=== PATIENT | female | born 2005 | race African-American/Black ===

== ENCOUNTER 2023-01-09 10:23 | Emergency (ER) | payer OTHER ==
[~2023-01-09] VITALS: Ht 157.5 cm; Wt 50.0 kg
[2023-01-09 10:27] VITALS: O2SAT 98
[2023-01-09] MEDS ORDERED: IBUP-2029 MT (10:50)
[2023-01-09] MEDS ORDERED: AMOX-494 MT (10:50)
[2023-01-09 11:23] VITALS: BP 124/77; PULSE 97; RESP 16; TEMP 100
== END 2023-01-09 11:54 | disposition home or self-care (01) ==
LOC: ER 11:49
DX: J03.90 Acute tonsillitis, unspecified (principal)
CPT/HCPCS: 87430; 99283

== ENCOUNTER 2023-04-03 11:00 | Emergency (ER) | payer OTHER ==
[~2023-04-03] VITALS: Ht 157.5 cm; Wt 50.0 kg
[~2023-04-03 11:00] MED LIST: AMOX-494 MT; IBUP-2029 MT
[2023-04-03 11:04] VITALS: TEMP 98.4; O2SAT 98
[2023-04-03] MEDS ORDERED: DIPHENHYDRAMINE 50MG CAPSULE PO ONE (11:15)
[2023-04-03] MEDS ORDERED: PREDNISONE 20MG TABLET PO ONE (11:15)
[2023-04-03] MEDS ORDERED: FAMOTIDINE 20MG TABLET PO ONE (11:15)
[2023-04-03] MEDS ORDERED: P20 MT (12:06)
[2023-04-03] MEDS ORDERED: EPIN0.3P3 IM (12:06)
[2023-04-03] MEDS ORDERED: DIPH25CA83 MT (12:06)
[2023-04-03 12:22] VITALS: BP 125/82; PULSE 100; RESP 17
== END 2023-04-03 12:20 | disposition home or self-care (01) ==
LOC: ER 11:00
DX: T78.40XA Allergy, unspecified, initial encounter (principal); X58.XXXA Exposure to other specified factors, initial encounter
CPT/HCPCS: 99284; 71045; Q0163; J7512